=== PATIENT | female | born 1945 ===

== ENCOUNTER 2021-08-05 05:02 | Emergency (ER) | payer OTHER ==
[~2021-08-05] VITALS: Ht 157.5 cm; Wt 80.3 kg
[~2021-08-05 05:02] MED LIST: ADALAT CC30 MG PO; CAPOTEN100 MG PO; CIMETIDINE400 MG PO; GEMFIBROZIL600 MG PO; GLUCOTROL10 MG PO; GLUMETZA1000 MG PO; METOCLOPRAMIDE10 MG PO
== END 2021-08-05 16:37 | disposition home or self-care (01) ==
LOC: ER 05:02
DX: R10.32 Left lower quadrant pain (principal)